=== PATIENT | female | born 1945 | race Two or more races ===

== ENCOUNTER 2025-02-06 06:22 | Day surgery (SDC) | payer MEDICARE, BC, SELFPAY | END 2025-02-06 13:37 | disposition home or self-care (01) | LOC: GI 06:22 | PROVIDERS: ATTENDING PHYSICIAN Internal Medicine Gastroenterology; FAMILY PHYSICIAN Family Medicine | DX: Z12.11 Encounter for screening for malignant neoplasm of colon (principal); K64.8 Other hemorrhoids; K57.30 Diverticulosis of large intestine without perforation or abscess without bleeding; C18.1 Malignant neoplasm of appendix; D12.2 Benign neoplasm of ascending colon; D12.7 Benign neoplasm of rectosigmoid junction; Z80.0 Family history of malignant neoplasm of digestive organs | CPT/HCPCS: 45384; 45385; 45380; 45381; 88305 ==